=== PATIENT | male | born 1995 | race Two or more races ===

== ENCOUNTER 2016-12-18 10:42 | Emergency (ER) | payer MEDICAID ==
[~2016-12-18] VITALS: Ht 175.3 cm; Wt 71.7 kg
[~2016-12-18 10:42] MED LIST: IBUPROFEN600 MG ORAL
[2016-12-18 10:52] VITALS: BP 113/67
[2016-12-18] MEDS ORDERED: ADULT WAL-100 MG/5 M ORAL (11:30)
[2016-12-18] MEDS ORDERED: LIDOCAINE VISC100 ML ORAL (11:30)
[2016-12-18 11:35] VITALS: BP 113/67
--- NOTE | 2016-12-23 22:40 | Emergency Room Report ---
History of Present Illness General Chief Complaint: Fever Source: Patient Present Illness HPI The patient presented for fever and sore throat. Patient gradual onset of symptoms over the past 2-3 . Patient noted to have some photophobia associated with some gradual onset headache. Patient was noted to have no difficulty with breathing. He had a nonproductive cough. He denied any leg pain or extremity pain. Allergies: Coded Allergies: AMOXICILLIN (Verified Allergy, Intermediate, 01/24/14) Patient History Past Medical History: see triage record Reviewed Nursing Documentation: PMH: Agreed, PSxH: Agreed Nursing Documentation-PMH Past Medical History: No Stated History Review of Systems All Other Systems: negative except mentioned in HPI Physical Exam Vital Signs Date Time Temp Pulse Resp B/P (MAP) Pulse Ox O2 Delivery O2 Flow Rate FiO2 12/18/16 10:46 99.3 78 19 113/67 99 Room Air General Appearance: well appearing, no apparent distress, alert, GCS 15 Head: normocephalic, atraumatic ENT: hearing grossly normal, normal voice, pharyngeal erythema Neck: full range of motion, supple Respiratory: lungs clear, normal breath sounds, no respiratory distress, speaking full sentences Cardiovascular #1: normal peripheral pulses, regular rate, rhythm, no edema Gastrointestinal: normal bowel sounds, non tender, soft, no mass Musculoskeletal: normal inspection, no calf tenderness Neurologic: normal inspection, alert, oriented x3, responsive, lay out and detail drafter III-XII nml as tested, normal gait Psychiatric: mood/affect normal Skin: no rash Medical Decision Making Diagnostic Impression: Primary Impression: Viral pharyngitis ER Course Patient presented for sore throat. Differential diagnosis included but was not limited to meningitis, exudative tonsillitis, retropharyngeal abscess, epiglottitis, strep pharyngitis. The patient appears to have a viral pharyngitis. The patient is advised to follow up with primary care doctor in 1 -2 days. Patient is advised to return if any worsening condition or if any changes in status that are concerning. Last Vital Signs Date Time Temp Pulse Resp B/P (MAP) Pulse Ox O2 Delivery O2 Flow Rate FiO2 12/18/16 11:35 99.0 78 19 113/67 99 Room Air Status: improved Disposition: HOME, SELF-CARE Condition: Stable Scripts Lidocaine HCl 2% Viscous (Lidocaine HCl 2% Viscous) 100 Ml Solution 15 ML ORAL QID, #120 ML Prov: Hima Mayorga 12/18/16 Guaifenesin* (ADULT WAL-TUSSIN*) 100 Mg/5 Ml Liquid 10 ML ORAL Q4H, #120 ML Prov: Hima Mayorga 12/18/16 Referrals: [facility],REFERRING Patient Instructions: Cough, Adult Hima Mayorga Dec 23, 2016 22:40
== END 2016-12-18 14:07 | disposition home or self-care (01) ==
LOC: EMR 11:29
DX: J02.9 Acute pharyngitis, unspecified (principal); R51 Headache; Z88.8 Allergy status to other drugs, medicaments and biological substances
CPT/HCPCS: 99283